=== PATIENT | female | born 1955 | race Caucasian/White ===

== ENCOUNTER 2024-02-05 12:37 | Emergency (ER) | payer OTHER ==
[~2024-02-05] VITALS: Ht 165.1 cm; Wt 63.5 kg
[2024-02-05 13:34] VITALS: BP_SYST 140; PULSE 75; RESP 15; TEMP 97.5; O2SAT 98
[2024-02-05] MEDS ORDERED: HYDR-3917 PO (16:04)
[2024-02-05] MEDS ORDERED: MELO-89 PO (16:04)
[2024-02-05 17:16] VITALS: BP_SYST 140; PULSE 75; RESP 15; TEMP 97.5; O2SAT 98
== END 2024-02-05 17:05 | disposition home or self-care (01) ==
LOC: SED 12:37
DX: S83.92XA Sprain of unspecified site of left knee, initial encounter (principal); S46.001A Unspecified injury of muscle(s) and tendon(s) of the rotator cuff of right shoulder, initial encounter; E78.5 Hyperlipidemia, unspecified; W18.39XA Other fall on same level, initial encounter; Y93.89 Activity, other specified; Y92.89 Other specified places as the place of occurrence of the external cause; Y99.8 Other external cause status
CPT/HCPCS: 73030; 73564; 99284